=== PATIENT | male | born 1955 | race Two or more races ===

== ENCOUNTER 2022-10-05 19:55 | Emergency (ER) | payer OTHER ==
[~2022-10-05] VITALS: Ht 193 cm; Wt 67.1 kg
[~2022-10-05 19:55] MED LIST: MOTRIN800 MG PO
== END 2022-10-05 22:19 | disposition home or self-care (01) ==
LOC: ER 19:55
DX: S41.021A Laceration with foreign body of right shoulder, initial encounter (principal); V19.3XXA Pedal cyclist (driver) (passenger) injured in unspecified nontraffic accident, initial encounter; Y93.55 Activity, bike riding; Y92.413 State road as the place of occurrence of the external cause; S09.8XXA Other specified injuries of head, initial encounter